=== PATIENT | female | born 1990 | race African-American/Black ===

== ENCOUNTER 2016-08-14 08:05 | Day surgery (SDC) | payer BC ==
[~2016-08-14 08:05] MED LIST: DENIES
[2016-08-14 08:35] LABS: HGB-HEMOGLOBIN 12.9 gm/dl (12.0-15.5); MCV (MEAN CELL VOLUME) 84.8 fl (82.0-96.0); RED CELL DISTRIBUTION WIDTH 13.7 % (12.4-16.4)
== END 2016-08-14 13:35 ==
LOC: WSU 08:05 → SHSC 08:08 → PACU 11:11 → SHSC 11:45
PROVIDERS: Obstetrics & Gynecology
PROC: 10D17ZZ Extraction of Products of Conception, Retained, Via Natural or Artificial Opening (ICD-10-PCS; principal; 2016-08-14)
DX: O02.1 Missed abortion (principal)
CPT/HCPCS: J2791; J3010